=== PATIENT | male | born 1935 | race Caucasian/White ===

== ENCOUNTER 2018-05-10 00:31 | Inpatient (IN) | payer MEDICARE, BC ==
[2018-05-10 01:37] LABS: ADD MAN DIFF? NO; BASOPHILS % 0.5 % (0.0-2.0); EOSINOPHILS # 0.2 10^3/ul (0.0-0.5); EOSINOPHILS % 2.6 % (0.0-7.0); HEMOGLOBIN 12.3 g/dl (14.0-18.0); LYMPHOCYTES # 0.7 10^3/ul (0.8-2.9); LYMPHOCYTES % 7.5 % (15.0-51.0); MEAN CORPUSCULAR HEMOGLOBIN 29.9 pg (29.0-33.0); MEAN CORPUSCULAR HGB CONC 34.2 g/dl (32.0-37.0); MEAN CORPUSCULAR VOLUME 87.4 fl (82.0-101.0); MEAN PLATELET VOLUME 10.3 fl (7.4-10.4); MONOCYTE # 0.8 10^3/ul (0.3-0.9); MONOCYTES % 9.5 % (0.0-11.0); NEUTROPHILS % 79.4 % (39.0-77.0); PLATELET COUNT 215 10^3/UL (140-415); RED BLOOD COUNT 4.12 10^6/ul (4.70-6.10); RED CELL DISTRIBUTION WIDTH 13.2 % (11.5-14.5)
[2018-05-10 01:37] LABS: WHITE BLOOD COUNT 8.8 10^3/ul (4.8-10.8)
[2018-05-10] MEDS: SOD CHLORIDE 0.9% 1,000 ML IV ×2 (01:49→12:12)
[2018-05-10 02:06] LABS: ALANINE AMINOTRANSFERASE 43 IU/L (13-69); ALBUMIN 4.4 g/dl (3.3-4.9); ALBUMIN/GLOBULIN RATIO 1.46; ALKALINE PHOSPHATASE 93 IU/L (42-121); ANION GAP 14 (8-16); ASPARTATE AMINO TRANSFERASE 38 IU/L (15-46); BILIRUBIN,INDIRECT 0.2 mg/dl (0-1.1); BILIRUBIN,TOTAL 0.2 mg/dl (0.2-1.3); BLOOD UREA NITROGEN 37 mg/dl (7-20); CALCIUM 10.4 mg/dl (8.4-10.2); CARBON DIOXIDE 26 mmol/L (21-31); CHLORIDE 103 mmol/L (97-110); CREATININE 1.66 mg/dl (0.61-1.24); GLUCOSE 147 mg/dl (70-220); POTASSIUM 4.1 mmol/L (3.5-5.1); SODIUM 139 mmol/L (135-144); TOTAL PROTEIN 7.4 g/dl (6.1-8.1)
[2018-05-10 02:12] LABS: ADD UMIC YES; UR ASCORBIC ACID 20 mg/dL (NEGATIVE); UR BACTERIA FEW /HPF (NONE SEEN); UR BILIRUBIN (Dip) NEGATIVE (NEGATIVE); UR BLOOD (Dip) 3+ mg/dL (NEGATIVE); UR CLARITY TURBID (CLEAR); UR COLOR RED (YELLOW); UR GLUCOSE (Dip) 2+ mg/dL (NEGATIVE); UR KETONES (Dip) NEGATIVE (NEGATIVE); UR LEUKOCYTE ESTERASE (Dip) NEGATIVE Leu/ul (NEGATIVE); UR NITRITE (Dip) NEGATIVE (NEGATIVE); UR RBC > 182 /HPF (0-5); UR SPECIFIC GRAVITY (Dip) 1.026 (1.003-1.030); UR TOTAL PROTEIN (Dip) 3+ mg/dl (NEGATIVE); UR UROBILINOGEN (Dip) NEGATIVE (NEGATIVE); UR WBC 15 /HPF (0-5)
[2018-05-10] MEDS: NICARDipine HCL 30 MG CAPSULE PO (03:23)
[2018-05-10] MEDS: LIDOCAINE 2% 20 ML UROJET SYRINGE MM ×2 (03:28→04:46)
[2018-05-10] MEDS ORDERED: SOD CHLORIDE 0.9% 1,000 ML IV (04:47)
[2018-05-10] MEDS: ONDANSETRON 4 MG INJ IV (04:47)
[2018-05-10] MEDS ORDERED: ONDANSETRON 4 MG INJ IV ×2 (05:00→05:30)
[2018-05-10] MEDS ORDERED: ACETAMINOPHEN 325 MG TAB PO ×2 (05:00→05:30)
[2018-05-10] MEDS ORDERED: ONDANSETRON 4 MG TAB PO (05:30)
[2018-05-10] MEDS ORDERED: NACL 0.9% 3 ML SYG IV (05:30)
[2018-05-10] MEDS: GEMFIBROZIL 600 MG TAB PO ×2 (08:27→21:06)
[2018-05-10] MEDS: METOPROLOL 25 MG TAB PO (08:27)
[2018-05-10] MEDS: AMLODIPINE 10 MG TAB PO (08:28)
[2018-05-10] MEDS: HYDROmorphONE 1 MG/ML SYG IV (11:07)
[2018-05-10] MEDS: hydrALAzine 20 MG INJ IV ×2 (15:01→21:10)
[2018-05-10] MEDS: METOPROLOL 50 MG TAB PO (17:23)
[2018-05-10] MEDS: TAMSULOSIN (SR) 0.4 MG CAP PO (21:06)
[2018-05-10] MEDS: traZODone 50 MG TAB PO (21:06)
[2018-05-11] MEDS: hydrALAzine 20 MG INJ IV ×2 (03:16→21:40)
[2018-05-11] MEDS: traMADol 50 MG TAB PO (04:42)
[2018-05-11 05:37] LABS: ADD MAN DIFF? NO
[2018-05-11 05:47] LABS: WHITE BLOOD COUNT 17.9 10^3/ul (4.8-10.8)
[2018-05-11 05:47] LABS: BASOPHILS % 0.2 % (0.0-2.0); EOSINOPHILS % 0.1 % (0.0-7.0); HEMATOCRIT 33.5 % (42.0-52.0); HEMOGLOBIN 11.4 g/dl (14.0-18.0); LYMPHOCYTES # 0.6 10^3/ul (0.8-2.9); LYMPHOCYTES % 3.5 % (15.0-51.0); MEAN CORPUSCULAR HEMOGLOBIN 29.4 pg (29.0-33.0); MEAN CORPUSCULAR VOLUME 86.3 fl (82.0-101.0); MEAN PLATELET VOLUME 10.7 fl (7.4-10.4); MONOCYTE # 1.4 10^3/ul (0.3-0.9); MONOCYTES % 7.9 % (0.0-11.0); NEUTROPHIL # 15.7 10^3/ul (1.6-7.5); NEUTROPHILS % 87.6 % (39.0-77.0); PLATELET COUNT 200 10^3/UL (140-415); RED BLOOD COUNT 3.88 10^6/ul (4.70-6.10); RED CELL DISTRIBUTION WIDTH 13.4 % (11.5-14.5)
[2018-05-11 06:17] LABS: ANION GAP 13 (8-16); BLOOD UREA NITROGEN 29 mg/dl (7-20); CALCIUM 10.3 mg/dl (8.4-10.2); CARBON DIOXIDE 24 mmol/L (21-31); CHLORIDE 102 mmol/L (97-110); CREATININE 1.39 mg/dl (0.61-1.24); GLUCOSE 157 mg/dl (70-220); PHOSPHORUS 3.2 mg/dl (2.5-4.9); POTASSIUM 4.1 mmol/L (3.5-5.1); SODIUM 135 mmol/L (135-144)
[2018-05-11] MEDS: HYDROCODONE/APAP (5/325) TAB PO (07:42)
[2018-05-11] MEDS: TAMSULOSIN (SR) 0.4 MG CAP PO ×2 (09:29→21:32)
[2018-05-11] MEDS: GEMFIBROZIL 600 MG TAB PO ×2 (09:29→21:32)
[2018-05-11] MEDS: METOPROLOL 25 MG TAB PO (09:30)
[2018-05-11] MEDS: DUTASTERIDE 0.5 MG CAP PO (09:31)
[2018-05-11] MEDS: AMLODIPINE 10 MG TAB PO (09:31)
[2018-05-11] MEDS: METOPROLOL 50 MG TAB PO (17:07)
[2018-05-11] MEDS: traZODone 50 MG TAB PO (21:32)
[2018-05-12 05:43] LABS: ADD MAN DIFF? NO
[2018-05-12 06:00] LABS: WHITE BLOOD COUNT 15.9 10^3/ul (4.8-10.8)
[2018-05-12 06:00] LABS: ABNORMAL IP MESSAGE 1; BASOPHILS % 0.1 % (0.0-2.0); EOSINOPHILS % 0.1 % (0.0-7.0); HEMATOCRIT 31.5 % (42.0-52.0); HEMOGLOBIN 10.6 g/dl (14.0-18.0); LYMPHOCYTES # 0.6 10^3/ul (0.8-2.9); LYMPHOCYTES % 3.7 % (15.0-51.0); MEAN CORPUSCULAR HEMOGLOBIN 29.3 pg (29.0-33.0); MEAN CORPUSCULAR HGB CONC 33.7 g/dl (32.0-37.0); MONOCYTES % 6.4 % (0.0-11.0); NEUTROPHIL # 14.1 10^3/ul (1.6-7.5); NEUTROPHILS % 89.1 % (39.0-77.0); PLATELET COUNT 198 10^3/UL (140-415); POSITIVE DIFF @See below; RED BLOOD COUNT 3.62 10^6/ul (4.70-6.10); RED CELL DISTRIBUTION WIDTH 13.5 % (11.5-14.5)
[2018-05-12 06:36] LABS: ANION GAP 13 (8-16); BLOOD UREA NITROGEN 37 mg/dl (7-20); CALCIUM 10.1 mg/dl (8.4-10.2); CARBON DIOXIDE 24 mmol/L (21-31); CHLORIDE 102 mmol/L (97-110); GLUCOSE 137 mg/dl (70-220); POTASSIUM 4.3 mmol/L (3.5-5.1); SODIUM 135 mmol/L (135-144)
[2018-05-12] MEDS: TAMSULOSIN (SR) 0.4 MG CAP PO ×2 (08:46→21:35)
[2018-05-12] MEDS: METOPROLOL 25 MG TAB PO (08:46)
[2018-05-12] MEDS: GEMFIBROZIL 600 MG TAB PO ×2 (08:47→21:35)
[2018-05-12] MEDS: AMLODIPINE 10 MG TAB PO (08:47)
[2018-05-12] MEDS: DUTASTERIDE 0.5 MG CAP PO (08:47)
[2018-05-12] MEDS: CEFTRIAXONE 1 GM/50 ML (PMX) 50 ML IVPB (13:02)
[2018-05-12] MEDS: METOPROLOL 50 MG TAB PO (18:22)
[2018-05-12] MEDS: traZODone 50 MG TAB PO (21:35)
[2018-05-13] MEDS: TAMSULOSIN (SR) 0.4 MG CAP PO (06:32)
[2018-05-13] MEDS: METOPROLOL 25 MG TAB PO (09:15)
[2018-05-13] MEDS: DUTASTERIDE 0.5 MG CAP PO (09:15)
[2018-05-13] MEDS: AMLODIPINE 10 MG TAB PO (09:16)
[2018-05-13] MEDS: GEMFIBROZIL 600 MG TAB PO (09:16)
[2018-05-13] MEDS: CEFTRIAXONE 1 GM/50 ML (PMX) 50 ML IVPB (09:18)
[2018-05-13] MEDS: METOPROLOL 50 MG TAB PO (17:18)
== END 2018-05-13 18:40 | disposition home or self-care (01) | DRG 696 ==
LOC: 2NE 05-12 13:27 → E/R 00:31 → MS2 04:48
DX: R31.0 Gross hematuria (principal); R33.9 Retention of urine, unspecified; Z85.46 Personal history of malignant neoplasm of prostate; N17.9 Acute kidney failure, unspecified; N40.0 Benign prostatic hyperplasia without lower urinary tract symptoms; K76.0 Fatty (change of) liver, not elsewhere classified; N32.9 Bladder disorder, unspecified; N13.30 Unspecified hydronephrosis; N39.0 Urinary tract infection, site not specified
CPT/HCPCS: 36415; 74176; 80048; 80053; 81001; 83735; 84100; 85025; 87086; 99285-25